=== PATIENT | male | born 1985 | race Caucasian/White ===

== ENCOUNTER 2017-03-08 14:52 | Emergency (ER) | payer SELFPAY ==
[~2017-03-08] VITALS: Ht 172.7 cm; Wt 80.3 kg
[2017-03-08 17:11] VITALS: Ht 172.7 cm; Wt 80.3 kg
[2017-03-08 20:20] VITALS: BP 132/82
== END 2017-03-08 20:20 | disposition home or self-care (01) ==
LOC: ED 14:52
DX: S62.305A Unspecified fracture of fourth metacarpal bone, left hand, initial encounter for closed fracture (principal); S62.145A Nondisplaced fracture of body of hamate [unciform] bone, left wrist, initial encounter for closed fracture; X58.XXXA Exposure to other specified factors, initial encounter; Y93.89 Activity, other specified; Y92.89 Other specified places as the place of occurrence of the external cause; Y99.8 Other external cause status
CPT/HCPCS: A4570

== ENCOUNTER 2018-06-04 21:40 | Emergency (ER) | payer BC ==
[~2018-06-04] VITALS: Ht 170.2 cm; Wt 77.6 kg
[2018-06-04 22:03] VITALS: Ht 170.2 cm; Wt 77.6 kg
[2018-06-05 00:36] VITALS: BP 127/79
== END 2018-06-05 00:24 | disposition home or self-care (01) ==
LOC: ED 21:40
DX: M25.461 Effusion, right knee (principal); M23.8X1 Other internal derangements of right knee; Z98.890 Other specified postprocedural states